=== PATIENT | male | born 2000 | race Caucasian/White ===

== ENCOUNTER 2023-02-25 06:49 | Day surgery (SDC) | payer OTHER ==
[~2023-02-25] VITALS: Ht 190.5 cm; Wt 82.1 kg
[2023-02-25] MEDS ORDERED: LIDOCAINE 2% 100 MG/5 ML UJET TP ONE (07:53)
[2023-02-25] MEDS ORDERED: fentaNYL citrate 0.05 MG/ML VIAL ONE (07:53)
[2023-02-25] MEDS ORDERED: fentaNYL citrate 0.05 MG/ML VIAL IVP ONE (08:50)
== END 2023-02-25 09:05 | disposition home or self-care (01) ==
LOC: MDS 06:49 → MMU 06:50 → MDS 09:05
PROVIDERS: ATTEND Internal Medicine Gastroenterology
DX: K62.5 Hemorrhage of anus and rectum (principal)
CPT/HCPCS: 45378; J3010